=== PATIENT | male | born 1965 | race Caucasian/White ===

== ENCOUNTER 2018-06-27 15:12 | Emergency (ER) | payer OTHER ==
[2018-06-27] MEDS ORDERED: TETANUS/DIPHTHERIA/PERTUSSIS 0.5 ML SYRINGE IM ONE (17:08)
[2018-06-27] MEDS ORDERED: BUFFERED LIDOCAINE 10 ML SYRINGE SUBQ STA (17:08)
[2018-06-27] MEDS ORDERED: BACITRACIN OINT TOP STA (17:33)
--- NOTE | 2018-06-27 17:36 | ED Physician Documentation ---
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 He denies any other injuries. His last tetanus booster was about 9 years ago. Review of Systems Skin: reports: Laceration (s) Neurologic: denies: Focal weakness, Numbness PD PAST MEDICAL HISTORY - Past Medical History Past Medical History: Yes Cardiovascular: None Respiratory: None Endocrine/Autoimmune: None GI: None : None HEENT: None Psych: None Musculoskeletal: None Derm: None - Past Surgical History Past Surgical History: Yes General: Appendectomy Ortho: ACL reconstruction - Present Medications Home Medications: Ambulatory Orders Medication Instructions Recorded Confirmed Albuterol Sulfate [Ventolin Hfa] 2 puffs IH QID PRN #1 hfa.aer.ad 10/04/15 predniSONE [Prednisone] 40 mg PO DAILY #10 tablet 10/04/15 - Allergies Allergies/Adverse Reactions: Allergies Allergy/AdvReac Type Severity Reaction Status Date / Time No Known Drug Allergies Allergy Verified 06/27/18 15:36 - Social History Does the pt smoke?: No Smoking Status: Never smoker Does the pt drink ETOH?: Yes Does the pt have substance abuse?: No - Immunizations Immunizations are current?: Yes - POLST Patient has POLST: No PD ED PE NORMAL - Vitals Vital signs reviewed: Yes (normal) - General General: Alert and oriented X 3, Well developed/nourished - HEENT HEENT: Atraumatic - Respiratory Respiratory: No respiratory distress - Derm Derm: No rash - Extremities Extremities: Other (There is a 1 cm laceration at the tip of the left index finger. There is no involvement of the fingernail or the DIP joint. Distal neurovascular is intact.) - Neuro Neuro: Alert and oriented X 3, No motor deficit, No sensory deficit Results - Vitals Vitals: Vital Signs - 24 hr 06/27/18 06/27/18 15:33 17:48 Temperature 37.0 C 36.0 C L Heart Rate 75 68 Respiratory 18 18 Rate Blood Pressure 130/84 H 149/88 H O2 Saturation 100 96 Oxygen O2 Source Room air Procedures - Laceration (location) left index finger Length in cm: 1 Wound type: Linear, Clean Neurovascular status: Sensory intact, Motor intact, Vascular intact Anesthesia: Lidocaine 1%, With bicarb Wound Preparation: Hibiclens, Irrigated copiously NS, Wound explored, To the base. No: FB identified Skin layer closure: Nylon, Interrupted, Size #-0 - enter number (5), Sutures - enter # (3) Other: Patient tolerated well, No complications, Neurovascular intact, Dressing applied, Tetanus booster given PD MEDICAL DECISION MAKING - ED course Complexity details: considered differential, d/w patient ED course: The patient presents with a laceration to his left index finger. The wound was repaired with nylon sutures, after local anesthetic and thorough cleaning of the wound. I discussed with him the expected course of healing, timing for suture removal, as well as potentially worrisome signs or symptoms that should prompt reevaluation in the emergency department. Departure - Departure Disposition: 01 Home, Self Care Clinical Impression: Finger laceration Qualifiers: Encounter type: initial encounter Finger: index finger Damage to nail status: without damage Foreign body presence: without foreign body Laterality: left Qualified Code(s): S61.211A - Laceration without foreign body of left index finger without damage to nail, initial encounter Condition: Stable Instructions: ED Laceration Hand Follow-Up: [facility] [Provider Group] Comments: Keep the wound clean, and apply antibiotic ointment daily. You can use Tylenol or ibuprofen if needed for discomfort. Follow-up for suture removal in about 10 days. Return to the emergency department sooner if you develop any sign of infection, or otherwise worsening symptoms. Discharge Date/Time: 06/27/18 17:56
[2018-06-27] MEDS ORDERED: BACITRACIN OINT TOP ONE (17:37)
[2018-06-27 17:48] VITALS: BP 149/88
== END 2018-06-27 17:56 | disposition home or self-care (01) ==
LOC: ED 15:12
DX: S61.211A Laceration without foreign body of left index finger without damage to nail, initial encounter (principal); W26.0XXA Contact with knife, initial encounter; Y92.009 Unspecified place in unspecified non-institutional (private) residence as the place of occurrence of the external cause; Z23 Encounter for immunization
CPT/HCPCS: 12001; 90471; 90715; 99282; 99283; A9270

== ENCOUNTER 2022-05-15 12:07 | Day surgery (SDC) | payer OTHER ==
[2022-05-15] MEDS ORDERED: PROPOFOL 500 MG/50 ML 500 MG/50 ML VIAL ONE (12:26)
[2022-05-15] MEDS ORDERED: MIDAZOLAM 2 MG/2 ML VIAL ONE (12:31)
--- NOTE | 2022-05-15 12:33 | ANESTHESIA ---
Pre-Anesthesia VS, & Labs - Diagnosis screening - Procedure colonoscopy Vital Signs: Temp Pulse Resp BP Pulse Ox O2 Flow Rate 36.5 C 67 11 L 127/82 H 97 05/15/22 12:28 05/15/22 12:28 05/15/22 12:28 05/15/22 12:28 05/15/22 12:28 Height: 6 ft 2 in Weight (kg): 134 kg Body Mass Index: 37.9 BMI Classification: Obese - NPO >8 hours - Lab Results Lab results reviewed: Yes Home Medications and Allergies Home Medications: Ambulatory Orders guaiFENesin [Tussin] 1 applic PO PRN PRN 05/14/22 guaiFENesin [Tussin] 1 applic PO PRN PRN 05/14/22 Allergies/Adverse Reactions: Allergies Allergy/AdvReac Type Severity Reaction Status Date / Time No Known Drug Allergies Allergy Verified 05/14/22 12:17 Anes History & Medical History - Anesthetic History Anesthesia Complications: reports: No previous complications Family history of Anesthesia Complications: Denies Family history of Malignant Hyperthermia: Denies - Medical History Cardiovascular: reports: None Pulmonary: reports: None Gastrointestinal: reports: None Urinary: reports: None Musculoskeletal: reports: None Endocrine/Autoimmune: reports: None Blood Disorders: reports: None Skin: reports: None Smoking Status: Never smoker - Surgical History General: reports: Appendectomy Orthopedic: reports: Arthroscopic surgery, Other Exam General: Alert, Oriented x3, Cooperative Dental: WNL Mouth Openin Fingerbreadth Neck Mobility: Normal Mallampati classification: II Thyromental Distance: 4-6 cm Respiratory: Lungs clear, Normal breath sounds, No respiratory distress Cardiovascular: Regular rate Plan Anesthesia Type: Total IV Consent for Procedure(s) Verified and Reviewed: Yes Code Status: Attempt Resuscitation ASA classification: 2-Mild systemic disease Is this case an emergency?: No
[2022-05-15] MEDS ORDERED: LACTATED RINGERS 1,000 ML IV ONE ×2 (12:41→14:02)
[2022-05-15] MEDS ORDERED: PROPOFOL 200 MG/20 ML VIAL IVP ONE (13:58)
--- NOTE | 2022-05-15 14:12 | ANESTHESIA POST OP EVALUATION ---
Anesthesia Post Eval - Post Anesthesia Eval Vitals: Last Vital Signs Temp 36.8 C 05/15/22 14:02 Pulse 71 05/15/22 14:07 Resp 21 05/15/22 14:07 BP 99/61 05/15/22 14:07 Pulse Ox 96 05/15/22 14:07 O2 Flow Rate CV Function Including HR & BP: Stable Pain Control: Satisfactory Nausea & Vomiting: Negative Mental Status: Baseline Respiratory Status: Airway Patent Hydration Status: Satisfactory Anesthesia Complications: None
[2022-05-15 14:34] VITALS: BP 129/78
== END 2022-05-15 12:08 | disposition home or self-care (01) ==
LOC: SDS 12:07
PROVIDERS: ATTEND Surgery
PROC: 0DBM8ZZ Excision of Descending Colon, Via Natural or Artificial Opening Endoscopic (ICD-10-PCS; 2022-05-15)
PROC: 0DBK8ZZ Excision of Ascending Colon, Via Natural or Artificial Opening Endoscopic (ICD-10-PCS; principal; 2022-05-15 13:30)
DX: Z12.11 Encounter for screening for malignant neoplasm of colon (principal); D12.2 Benign neoplasm of ascending colon; D12.4 Benign neoplasm of descending colon; E66.9 Obesity, unspecified; Z68.37 Body mass index [BMI] 37.0-37.9, adult; G47.30 Sleep apnea, unspecified; Z87.891 Personal history of nicotine dependence
CPT/HCPCS: 45380; 45385; J7120

== ENCOUNTER 2023-02-09 12:40 | Emergency (ER) | payer OTHER ==
--- NOTE | 2023-02-09 13:04 | ED Physician Documentation ---
PD HPI URI - Stated complaint Stated Complaint: CONGESTION,CHEST TIGHTNESS - Chief complaint Chief Complaint: General - History obtained from History obtained from: Patient - History of Present Illness Timing - onset: How many weeks ago (several weeks of illness with cough, congestion, fevers. Seemed to be improving then ill again the following week. Now ill again the third wave of it, with now wheezing, cough, sinus purulent drainage, productive cough.) Timing details: Gradual onset, Waxing and waning Associated symptoms: Productive cough, Dyspnea. No: Hemoptysis, Chest pain, Bilateral edema Contributing factors: Sick contact (his kids are school aged and have had some URI symptoms the past month mildly.). No: COPD / asthma Improves by: No: Medication (trying OTC cough medications.) Worsened by: Activity, Breathing Similar symptoms before: Has not had sx before Recently seen: Not recently seen Review of Systems Constitutional: reports: Chills, Myalgias Nose: reports: Congestion, Sinus pressure / pain Throat: denies: Sore throat Cardiac: denies: Chest pain / pressure, Pedal edema, Calf pain Respiratory: reports: Dyspnea, Cough, Wheezing. denies: Hemoptysis PD PAST MEDICAL HISTORY - Past Medical History Cardiovascular: None Respiratory: None (no history of asthma.) Endocrine/Autoimmune: None GI: None : None HEENT: None Psych: None Musculoskeletal: None Derm: None - Past Surgical History Past Surgical History: Yes General: Appendectomy Ortho: Arthroscopic surgery, Other - Present Medications Home Medications: Ambulatory Orders Medication Instructions Recorded Confirmed guaiFENesin [Tussin] 1 applic PO PRN PRN 05/14/22 05/14/22 Albuterol Sulf [Ventolin Hfa 2 - 3 puffs INH QID #1 each 02/09/23 Inhaler] Amox/Clav 875/125 [Augmentin] 1 each PO Q12H #14 tablet 02/09/23 Benzonatate [Tessalon] 100 mg PO TID PRN #20 cap 02/09/23 dexAMETHasone [Decadron] 4 mg PO DAILY #5 tablet 02/09/23 - Allergies Allergies/Adverse Reactions: Allergies Allergy/AdvReac Type Severity Reaction Status Date / Time No Known Drug Allergies Allergy Verified 05/14/22 12:17 - Social History Does the pt smoke?: No Smoking Status: Never smoker Does the pt drink ETOH?: Yes Does the pt have substance abuse?: No - Immunizations Immunizations are current?: Yes - POLST Patient has POLST: No PD ED PE NORMAL - Vitals Vital signs reviewed: Yes - General General: Alert and oriented X 3, No acute distress, Well developed/nourished - HEENT HEENT: Pharynx benign - Neck Neck: Supple, no meningeal sign, No adenopathy - Cardiac Cardiac: RRR, No murmur - Respiratory Respiratory: No respiratory distress. No: Clear bilaterally (has pretty notable diffuse exp wheezing with some central bronchial congestion sounds. No coarse sounds peripherally, just wheezing. ) Results - Vitals Vitals: Vital Signs - 24 hr 02/09/23 02/09/23 12:54 14:44 Temperature 36.5 C Heart Rate 59 L 62 Respiratory 19 16 Rate Blood Pressure 157/82 H 138/81 H O2 Saturation 98 100 Oxygen O2 Source Room air PD Medical Decision Making - ED course Complexity details: reviewed results (chest xray clear), re-evaluated patient (he has improved breathing and lessened cough after nebulizer treatment in ED. ), considered differential (has been ill for few weeks with now increased sinus drainage, cough, wheeze and sputum production. May have another viral illness devleoping, but pattern suggestive of secondary sinus/bronchial infection with prior viral illness. Has notable wheezing here and so some element of bronchail inflammatio), d/w patient Departure - Departure Disposition: 01 Home, Self Care Clinical Impression: Dyspnea and respiratory abnormality, Wheezing, Acute sinusitis Condition: Stable Record reviewed to determine appropriate education?: Yes Instructions: ED Sinusitis Abx Tx, ED URI Viral W Wheezing Follow-Up: [facility] [Provider Group] Prescriptions: Amox/Clav 875/125 [Augmentin] 1 each PO Q12H #14 tablet dexAMETHasone [Decadron] 4 mg PO DAILY #5 tablet Benzonatate [Tessalon] 100 mg PO TID PRN #20 cap PRN Reason: Cough Albuterol Sulf [Ventolin Hfa Inhaler] 2 - 3 puffs INH QID #1 each Comments: Your chest x-ray is clear without any signs of pneumonia. You certainly have a lot of wheezing and congested sounds throughout your lung aguilar. This commonly can be an effect of a viral illness that will cause inflammation more diffusely. He also have the sinus type symptoms which again can be viral initially. However the duration and character of your symptoms are concerning for now having a bacterial component as well. I would treat with Augmentin antibiotic twice daily for a week for bacterial infection, predominantly sounding like it in your sinuses. For the wheezing and trouble breathing/cough, I would have you take an albuterol inhaler 2 to 3 puffs 4 times daily regularly for the next 7 to 10 days and extra times if needed. Also dexamethasone steroid for inflammation of the bronchioles daily for the next 5 days. Tylenol if needed for fevers or pains. You can add benzonatate/Tessalon if needed for cough. Stay well-hydrated. Recheck if not improving well over the next several days and resolved by 4 to 5 days. I sent your prescriptions to the [facility]. Forms: PCP List Discharge Date/Time: 02/09/23 14:45
[2023-02-09] MEDS: AMOX/CLAV 875 MG/125 MG TABLET PO STA (14:00)
[2023-02-09] MEDS: dexAMETHasone 4 MG TABLET PO STA (14:01)
[2023-02-09] MEDS: ALBUTEROL NEB 2.5 MG/3 ML INH STA (14:12)
[2023-02-09 14:51] VITALS: BP 138/81; O2SAT 100
--- NOTE | 2023-02-09 14:52 | XRAY Report ---
PROCEDURE: Chest 1 View X-Ray INDICATIONS: cough, wheeze, congested sounds TECHNIQUE: One view of the chest was acquired. COMPARISON: 10/04/2015 FINDINGS: Surgical changes and devices: None. Lungs and pleura: No pleural effusions or pneumothorax. Lungs are clear. Mediastinum: Mediastinal contours appear normal. Heart size is normal. Bones and chest wall: No suspicious bony lesions. Overlying soft tissues appear unremarkable. IMPRESSION: No acute cardiopulmonary process. Reviewed by: David Jones MD on 02/09/2023 2:51 PM PDT Approved by: David Jones MD on 02/09/2023 2:51 PM PDT Station ID: [id number]
== END 2023-02-09 14:45 | disposition home or self-care (01) ==
LOC: ED 12:40
DX: J01.90 Acute sinusitis, unspecified (principal); R06.00 Dyspnea, unspecified; R06.2 Wheezing; Z79.899 Other long term (current) drug therapy
CPT/HCPCS: 94640; 99283; 99284

== ENCOUNTER 2023-04-24 14:02 | Emergency (ER) | payer OTHER ==
--- NOTE | 2023-04-24 14:39 | ED Physician Documentation ---
PD HPI WOUND RECHECK - Stated complaint Stated Complaint: LT ARM BLISTERING - Chief complaint Chief Complaint: Wound - Histroy obtained from History obtained from: Patient - Additional information Additional information: About 9 days ago he cut himself on a metal edge to the left forearm. He has been applying Neosporin up until 2 days ago and it started to get red and blistered. PD PAST MEDICAL HISTORY - Past Medical History Past Medical History: No Cardiovascular: None Respiratory: None Endocrine/Autoimmune: None GI: None : None HEENT: None Psych: None Musculoskeletal: None Derm: None - Past Surgical History Past Surgical History: Yes General: Appendectomy Ortho: Arthroscopic surgery, Other - Present Medications Home Medications: Ambulatory Orders Medication Instructions Recorded Confirmed Albuterol Sulf [Ventolin Hfa 2 - 3 puffs INH Q4HR PRN 04/24/23 04/24/23 Inhaler] Triamcinolone 0.1% Oint 1 applic TOP BID #80 gm 04/24/23 cephALEXin [Keflex] 500 mg PO Q6H #28 cap 04/24/23 - Allergies Allergies/Adverse Reactions: Allergies Allergy/AdvReac Type Severity Reaction Status Date / Time wasp Allergy Edema Uncoded 04/24/23 14:24 - Social History Does the pt smoke?: No Smoking Status: Never smoker Does the pt drink ETOH?: Yes Does the pt have substance abuse?: No - Immunizations Immunizations are current?: Yes - POLST Patient has POLST: No PD ED PE NORMAL - Vitals Vital signs reviewed: Yes - General General: Alert and oriented X 3, No acute distress - Extremities Extremities: Other (He has what looks more like a contact dermatitis with very Square edges from the Band-Aid that the Neosporin was under. Less likely a cellulitis but again very square and rectangular edges.) - Neuro Neuro: Alert and oriented X 3, Normal speech Results - Vitals Vitals: Vital Signs - 24 hr 04/24/23 14:20 Temperature 36.0 C L Heart Rate 78 Respiratory 16 Rate Blood Pressure 151/76 H O2 Saturation 94 Oxygen O2 Source Room air Departure - Departure Disposition: 01 Home, Self Care Clinical Impression: Contact dermatitis Qualifiers: Contact dermatitis type: allergic Contact dermatitis trigger: drugs in contact with skin Qualified Code(s): L23.3 - Allergic contact dermatitis due to drugs in contact with skin Condition: Good Record reviewed to determine appropriate education?: Yes Instructions: ED Dermatitis Contact Prescriptions: cephALEXin [Keflex] 500 mg PO Q6H #28 cap Triamcinolone 0.1% Oint 1 applic TOP BID #80 gm Comments: I sent your prescription electronically to [facility] in [place]. As discussed this looks more like a contact dermatitis than an infection although I am treating for both. The contact dermatitis is from the neomycin antibiotic and the Neosporin and you should avoid using Neosporin going forward for this reason. Return for new or worsening symptoms or if not improving over the next few days.
[2023-04-24 14:48] VITALS: BP 140/76; O2SAT 96
== END 2023-04-24 14:43 | disposition home or self-care (01) ==
LOC: ED 14:02
DX: L23.3 Allergic contact dermatitis due to drugs in contact with skin (principal); T49.0X5A Adverse effect of local antifungal, anti-infective and anti-inflammatory drugs, initial encounter
CPT/HCPCS: 99282; 99283

== ENCOUNTER 2023-05-07 14:01 | Emergency (ER) | payer OTHER ==
[2023-05-07 15:19] LABS: B. PARAPERTUSSIS- RESP PCR PAN NOT DETECTED; B. PERTUSSIS- RESP PCR PANEL NOT DETECTED; C. PNEUMONIAE- RESP PCR PANEL NOT DETECTED; CORONAVIRUS 229E-RESP PCR NOT DETECTED; CORONAVIRUS HKU1-RESP PCR NOT DETECTED; CORONAVIRUS NL63-RESP PCR NOT DETECTED; CORONAVIRUS OC43-RESP PCR NOT DETECTED; HUMAN METAPNEUMOVIRUS NOT DETECTED; INFLUENZA A- RESP PCR PANEL NOT DETECTED; INFLUENZA B - RESP PCR PANEL NOT DETECTED; M. PNEUMONIAE- RESP PCR PANEL NOT DETECTED; PARAINFLUENZA VIRUS 1 NOT DETECTED; PARAINFLUENZA VIRUS 2 NOT DETECTED; PARAINFLUENZA VIRUS 3 NOT DETECTED; PARAINFLUENZA VIRUS 4 NOT DETECTED; RHINOVIRUS/ENTEROVIRUS NOT DETECTED; RSV- RESP PCR PANEL NOT DETECTED; SARS-CoV-2 -RESP PCR PANEL NOT DETECTED
[2023-05-07] MEDS ORDERED: IPRATROPIUM/ALBUTEROL 3 ML NEB INH STA (15:46)
--- NOTE | 2023-05-07 15:46 | ED Physician Documentation ---
PD HPI DYSPNEA - Stated complaint Stated Complaint: CONGESTION,SOA,TIGHTNESS - Chief complaint Chief Complaint: Resp - History obtained from History obtained from: Patient - Additional information Additional information: 57-year-old male presents with 3 to 4 weeks of cough and nasal congestion. Started off as a typical cold, nasal congestion and rhinorrhea no fever. Symptoms came and went over the course of the last couple weeks but seem to be getting a bit worse over the last few days without any respite. He has increasing nasal congestion and rhinorrhea, frequent productive cough and feels like he cannot clear his airways. He was not aware that he had a fever though temperature 38 C here in triage. He feels some chest tightness with deep breath. No history of lung disease to his knowledge, he did smoke a number of years ago but quit about 19 years ago. No history of COPD or asthma. Review of Systems Constitutional: reports: Fever. denies: Chills, Myalgias, Fatigue Ears: reports: Reviewed and negative Nose: reports: Reviewed and negative Throat: reports: Reviewed and negative Cardiac: reports: Reviewed and negative Respiratory: reports: Dyspnea, Cough, Wheezing. denies: Hemoptysis GI: reports: Reviewed and negative : reports: Reviewed and negative Skin: reports: Reviewed and negative Musculoskeletal: reports: Reviewed and negative PD PAST MEDICAL HISTORY - Past Medical History Past Medical History: No Cardiovascular: None Respiratory: None Endocrine/Autoimmune: None GI: None : None HEENT: None Psych: None Musculoskeletal: None Derm: None - Past Surgical History Past Surgical History: Yes General: Appendectomy Ortho: Arthroscopic surgery, Other - Present Medications Home Medications: Ambulatory Orders Medication Instructions Recorded Confirmed Albuterol Sulf [Ventolin Hfa 2 - 3 puffs INH Q4HR PRN 04/24/23 04/24/23 Inhaler] Triamcinolone 0.1% Oint 1 applic TOP BID #80 gm 04/24/23 cephALEXin [Keflex] 500 mg PO Q6H #28 cap 04/24/23 Albuterol Sulf [Ventolin Hfa 1 - 2 puffs INH Q4HR PRN #1 each 05/07/23 Inhaler] Benzonatate [Tessalon] 100 mg PO TID #30 cap 05/07/23 Doxycycline Hyclate 100 mg PO BID 10 Days #20 cap 05/07/23 predniSONE [Deltasone] 40 mg PO DAILY 5 Days #10 tablet 05/07/23 - Allergies Allergies/Adverse Reactions: Allergies Allergy/AdvReac Type Severity Reaction Status Date / Time wasp Allergy Edema Uncoded 05/07/23 14:08 - Social History Does the pt smoke?: No Smoking Status: Never smoker Does the pt drink ETOH?: Yes Does the pt have substance abuse?: No - Immunizations Immunizations are current?: Yes - POLST Patient has POLST: No PD ED PE NORMAL - Vitals Vital signs reviewed: Yes - General General: Alert and oriented X 3, No acute distress, Well developed/nourished - HEENT HEENT: Atraumatic, Moist mucous membranes, Pharynx benign - Neck Neck: Supple, no meningeal sign, No adenopathy - Cardiac Cardiac: RRR, No murmur - Respiratory Respiratory: Other (Bilateral expiratory wheezes and audible expiratory wheeze. Nonlabored.) - Abdomen Abdomen: Normal bowel sounds, Soft, Non tender, Non distended - Derm Derm: Normal color, Warm and dry, No rash - Extremities Extremities: No deformity, No edema, No calf tenderness / cord - Neuro Neuro: Alert and oriented X 3 Eye Opening: Spontaneous Motor: Obeys Commands Verbal: Oriented GCS Score: 15 - Psych Psych: Normal mood, Normal affect Results - Vitals Vitals: Vital Signs - 24 hr 05/07/23 05/07/23 05/07/23 14:08 16:10 16:36 Temperature 38.0 C H 37.5 C Heart Rate 77 80 80 Respiratory 16 20 16 Rate Blood Pressure 140/80 H 130/82 H O2 Saturation 95 96 Oxygen O2 Source Room air - Labs Labs: Laboratory Tests 05/07/23 14:15 Nasal Adenovirus (PCR) NOT DETECTED Nasal B. parapertussis DNA (PCR) NOT DETECTED Nasal Coronavir 229E PCR NOT DETECTED Nasal Coronavir HKU1 PCR NOT DETECTED Nasal Coronavir NL63 PCR NOT DETECTED Nasal Coronavir OC43 PCR NOT DETECTED Nasal Enterovir/Rhinovir PCR NOT DETECTED Nasal Influenza B PCR NOT DETECTED Nasal Influenza A PCR NOT DETECTED Nasal Parainfluen 1 PCR NOT DETECTED Nasal Parainfluen 2 PCR NOT DETECTED Nasal Parainfluen 3 PCR NOT DETECTED Nasal Parainfluen 4 PCR NOT DETECTED Nasal RSV (PCR) NOT DETECTED Nasal B.pertussis DNA PCR NOT DETECTED Nasal C.pneumoniae (PCR) NOT DETECTED Phil Human Metapneumo PCR NOT DETECTED Nasal M.pneumoniae (PCR) NOT DETECTED Nasal SARS-CoV-2 (PCR) NOT DETECTED - Rads (name of study) No standard instances Relevant Findings:: Final report received PD Medical Decision Making - ED course Complexity details: reviewed results, re-evaluated patient, considered differential ED course: 57-year-old male who states he has no underlying lung disease presents with 3 to 4 weeks of cough and nasal congestion as well as some wheezing. He has audible wheezes here on physical exam but appears in no respiratory distress, he is oxygenating well on room air. His viral panel is negative, and a chest x-ray was obtained which shows no acute pneumonia, And certainly a persistent viral syndrome remains in the differential versus bacterial bronchitis versus early pneumonia, but I think reasonable to treat him at this point in time with antibiotics given the duration of his symptoms as well as wheezing. Will treat with doxycycline, 5 days of prednisone, Tessalon, and as needed albuterol. Patient was advised of return precautions if any new or worsening symptoms. Departure - Departure Disposition: 01 Home, Self Care Clinical Impression: Bronchitis Condition: Good Instructions: Bronchitis Acute Dc Prescriptions: Albuterol Sulf [Ventolin Hfa Inhaler] 1 - 2 puffs INH Q4HR PRN #1 each PRN Reason: Shortness Of Air/Wheezing predniSONE [Deltasone] 40 mg PO DAILY 5 Days #10 tablet Doxycycline Hyclate 100 mg PO BID 10 Days #20 cap Benzonatate [Tessalon] 100 mg PO TID #30 cap Comments: Your symptoms are suggestive of a bronchitis or developing pneumonia. I am starting you on antibiotics, you will take doxycycline for the next 10 days, and you can use as needed Tessalon Perles for the cough, albuterol to help with your breathing and wheezing, and steroids for the next 5 days. Please return if you develop worsening symptoms, increasing shortness of breath, chest pain, increasing fever or any concerns. Medication [facility] to [facility] Forms: PCP List Discharge Date/Time: 05/07/23 16:36
--- NOTE | 2023-05-07 16:31 | XRAY Report ---
PROCEDURE: Chest 2V INDICATIONS: cough TECHNIQUE: 2 views of the chest were acquired. COMPARISON: None. FINDINGS: Surgical changes and devices: None. Lungs and pleura: No pleural effusions or pneumothorax. Lungs are clear. Mediastinum: Mediastinal contours appear normal. Heart size is normal. Bones and chest wall: No suspicious bony lesions. Overlying soft tissues appear unremarkable. IMPRESSION: No acute cardiopulmonary process. Reviewed by: Marcos Sinha MD on 05/07/2023 4:30 PM PST Approved by: Marcos Sinha MD on 05/07/2023 4:30 PM PST Station ID: [id number]
[2023-05-07 16:38] VITALS: BP 130/82; O2SAT 96
== END 2023-05-07 16:36 | disposition home or self-care (01) ==
LOC: ED 14:01
DX: J40 Bronchitis, not specified as acute or chronic (principal)
CPT/HCPCS: 87633; 94640; 94664; 99283; 99284

== ENCOUNTER 2023-06-18 13:25 | Outpatient (CLI) | payer OTHER | END 2023-06-18 13:26 | disposition home or self-care (01) | LOC: RT 13:25 | PROVIDERS: ATTEND Nurse Practitioner Family | DX: R06.2 Wheezing (principal); J94.1 Fibrothorax | CPT/HCPCS: 94010; 94727; 94729 ==

== ENCOUNTER 2023-08-24 16:38 | Emergency (ER) | payer OTHER ==
--- NOTE | 2023-08-24 17:21 | ED Physician Documentation ---
PD HPI HEAD INJURY - Stated complaint Stated Complaint: HEAD LAC - Chief complaint Chief Complaint: Laceration - History obtained from History obtained from: Patient - Additional information Additional information: Few hours ago he scraped his head while getting his boat out of storage. He has a laceration on the left temporal area. There is no loss of consciousness. Had a significant headache which is now much better. He did not recall last tetanus but it was in 2019. PD PAST MEDICAL HISTORY - Past Medical History Past Medical History: Yes Cardiovascular: None Respiratory: Other Neuro: None Endocrine/Autoimmune: None GI: None : None HEENT: None Psych: None Musculoskeletal: None Derm: None - Past Surgical History Past Surgical History: Yes General: Appendectomy Ortho: Arthroscopic surgery, Other - Present Medications Home Medications: Ambulatory Orders Medication Instructions Recorded Confirmed Albuterol Sulf [Ventolin Hfa 1 - 2 puffs INH Q4HR PRN #1 each 05/07/23 08/24/23 Inhaler] Benzonatate [Tessalon] 100 mg PO TID PRN 08/24/23 08/24/23 Cetirizine [ZyrTEC] 10 mg PO DAILY 08/24/23 08/24/23 Fluticasone Propion/Salmeterol 1 puffs IH DAILY 08/24/23 08/24/23 [Fluticasone-Salmeterol 100-50] - Allergies Allergies/Adverse Reactions: Allergies Allergy/AdvReac Type Severity Reaction Status Date / Time wasp Allergy Edema Uncoded 08/24/23 16:51 - Social History Does the pt smoke?: No Smoking Status: Never smoker Does the pt drink ETOH?: Yes Does the pt have substance abuse?: No - Immunizations Immunizations are current?: Yes - POLST Patient has POLST: No PD ED PE NORMAL - Vitals Vital signs reviewed: Yes - General General: Alert and oriented X 3, No acute distress - HEENT HEENT: PERRL, EOMI, Other (6 cm generally linear laceration to the left temporal parietal area.) - Neck Neck: Supple, no meningeal sign, No bony TTP - Neuro Neuro: Alert and oriented X 3 Results - Vitals Vitals: Vital Signs - 24 hr 08/24/23 16:51 Temperature 36.3 C L Heart Rate 77 Respiratory 16 Rate Blood Pressure 147/83 H O2 Saturation 97 Oxygen O2 Source Room air Procedures - Laceration (location) L scalp Length in cm: 6 Wound type: Linear Anesthesia: Lidocaine 2% with epi Wound preparation: Irrigated copiously NS Skin layer closure: [place] (9) Other: Patient tolerated well, No complications, Neurovascular intact PD Medical Decision Making - ED course ED course: 57-year-old gentleman with a scalp laceration. Up-to-date on tetanus. It was closed with [facility]ley. Nothing in the history or physical to be super concerning for serious head injury but was given close return precautions. Departure - Departure Disposition: 01 Home, Self Care Clinical Impression: Laceration Condition: Good Record reviewed to determine appropriate education?: Yes Instructions: ED Laceration Scalp Stitch Or Stap Comments: Follow-up with your doctor or go to urgent care or return here for staple removal in 7 to 10 days. Return if you develop more severe headache, vomiting, or other new or worrisome symptoms.
[2023-08-24 17:48] VITALS: BP 140/81; O2SAT 95
== END 2023-08-24 17:43 | disposition home or self-care (01) ==
LOC: ED 16:38
DX: S01.01XA Laceration without foreign body of scalp, initial encounter (principal); W22.8XXA Striking against or struck by other objects, initial encounter; Z79.899 Other long term (current) drug therapy
CPT/HCPCS: 12004; 99283